=== PATIENT | female | born 1945 | race Caucasian/White ===

== ENCOUNTER 2021-12-15 08:02 | Inpatient (IN) | payer MEDICARE, OTHER ==
[2021-12-11 14:32] LABS: Urine Bacteria NONE SEEN /hpf (None Seen); Urine Blood Negative /uL (Negative); Urine Specific Gravity 1.008 (1.001-1.035); Urine WBC 1 /hpf (0 - 5)
[2021-12-11 14:34] LABS: Basophils # (auto) 0.1 10 ^3/uL (0-0.2); Basophils % (auto) 1.1 % (0.0-2.0); Eosinophils # (auto) 0.2 10 ^3/uL (0-0.8); Eosinophils % (auto) 1.8 % (0.0-7.0); Hematocrit 46.3 % (36.0-46.0); Hemoglobin 15.7 g/dL (12.2-16.2); Lymphocytes # (auto) 2.3 10 ^3/uL (0.4-5.4); Lymphocytes % (auto) 27.3 % (10.0-50.0); Mean Corpuscular Hemoglobin 31.6 pg (28.0-32.0); Mean Corpuscular Hgb Conc. 33.9 g/dL (32.0-36.0); Mean Corpuscular Volume 93.3 fL (80.0-100.0); Monocytes # (auto) 0.8 10 ^3/uL (0-1.3); Monocytes % (auto) 9.1 % (0.0-12.0); Neutrophils # (auto) 5.1 10 ^3/uL (1.6-8.6); Neutrophils % (auto) 60.7 % (37.0-80.0); Red Blood Cells 4.96 10^6/uL (4.0-5.20); Red Cell Distribution Width 13.1 % (11.8-14.3); White Blood Cell 8.5 10^3/uL (4.4-10.8)
[2021-12-11 14:45] LABS: INR 1.03 (0.9-1.15); Partial Thromboplastin Time 27.1 sec (23.6-33.0)
[2021-12-11 14:54] LABS: Calcium 8.9 mg/dL (8.5-10.1); Potassium 3.9 mmol/L (3.5-5.1)
[2021-12-11 15:09] LABS: Albumin 3.5 g/dL (3.4-5.0); BUN/Creatinine Ratio 14.1; Bilirubin, Total 0.3 mg/dL (0.2-1.0)
[~2021-12-15] VITALS: Ht 147.3 cm; Wt 78.5 kg
[2021-12-15] VITALS (7 sets, daily range): BP systolic 82–96; BP diastolic 41–52
[~2021-12-15 08:02] MED LIST: CHOL20007 OR; DICL50TA4 PO
[2021-12-15] MEDS ORDERED: ceFAZolin 1GM/50ML 100 ML IV ONE (08:32)
[2021-12-15] MEDS ORDERED: EPINEPHrine HCL 1 MG/1 ML AMP ONE (10:21)
[2021-12-15] MEDS ORDERED: TRANEXAMIC ACID 20 ML ONE (10:21)
[2021-12-15] MEDS ORDERED: VANCOMYCIN HCL 1000 MG VL ONE (10:22)
[2021-12-15] MEDS ORDERED: TETRACAINE 1% INJ 2 ML VIAL IJ ONE (10:23)
[2021-12-15] MEDS ORDERED: MIDAZOLAM HCL 2MG/2ML 2ml VIAL (1mg/ml) ONE (10:28)
[2021-12-15] MEDS ORDERED: fentaNYL CITRATE 100 MCG/2 ML VL ONE (10:28)
[2021-12-15] MEDS ORDERED: MORPHINE SULF PF 5 MG/10 ML VIAL ONE (10:28)
[2021-12-15] MEDS ORDERED: ROCURONIUM 10MG/ML 10ML VIAL IV ONE (11:01)
[2021-12-15] MEDS ORDERED: oxyCODONE HCL 5MG TAB PO PRN ×2 (11:30)
[2021-12-15] MEDS ORDERED: ONDANSETRON HCL 4 MG/2 ML VIAL ONE (12:41)
[2021-12-15] MEDS ORDERED: LIDOCAINE 2% (LOCAL ANESTH.) PF 5ml SDV ONE (12:41)
[2021-12-15] MEDS ORDERED: PROPOFOL 10 MG/ML 20 ML IV ONE ×2 (12:42→12:49)
[2021-12-15] MEDS ORDERED: ONDANSETRON HCL 4 MG/2 ML VIAL IV PRN ×2 (13:00→13:30)
[2021-12-15] MEDS ORDERED: LABETALOL HCL 5 MG/ML 4ML SYRINGE IV ONE (13:23)
[2021-12-15] MEDS ORDERED: DexAMETHasone SOD PHOS 10MG/1ML VIAL INJ IV PRN (13:30)
[2021-12-15] MEDS ORDERED: diphenhdrAMINE HCL 50 MG/1 ML VL IV PRN (13:30)
[2021-12-15] MEDS ORDERED: NALOXONE HCL 0.4 MG/ML VIAL IV PRN (13:30)
[2021-12-15] MEDS ORDERED: NALBUPHINE HCL 10 MG/1ml INJECTION SUBCUT ONE (13:30)
[2021-12-15] MEDS ORDERED: HYDROmorphone HCL 2 MG/ML VL/or syr IV PRN ×2 (13:30)
[2021-12-15] MEDS ORDERED: ceFAZolin 2 GM in D5W 5% 100 ML IV SCH (14:00)
[2021-12-15] MEDS: SODIUM CHLORIDE 0.9% 1,000 ML IV SCH ×2 (15:22→20:20)
[2021-12-15] MEDS: KETOROLAC TROMETH 30 MG/ML 1ML VIAL IV SCH ×2 (18:00→23:55)
[2021-12-15] MEDS: ACETAMINOPHEN 325 MG TAB PO SCH ×2 (18:00→23:55)
[2021-12-15] MEDS: ALBUTEROL SULF 2.5 MG/0.5ML(0.5%) NEB SOLN NEB SCH (18:00)
[2021-12-15] MEDS: DOCUSATE SOD 100 MG CAP PO SCH (20:20)
[2021-12-15] MEDS: ceFAZolin 2 GM in D5W 5% 100 ML IV SCH (20:20)
[2021-12-15] MEDS: PREGABALIN 25 MG CAP PO SCH (20:21)
[2021-12-15] MEDS ORDERED: SENNA 8.6 MG TAB PO SCH (22:00)
[2021-12-16] VITALS (11 sets, daily range): BP systolic 80–101; BP diastolic 40–66
[2021-12-16] MEDS: ceFAZolin 2 GM in D5W 5% 100 ML IV SCH (02:40)
[2021-12-16 05:35] LABS: Basophils # (auto) 0 10 ^3/uL (0-0.2); Basophils % (auto) 0.3 % (0.0-2.0); Eosinophils # (auto) 0 10 ^3/uL (0-0.8); Eosinophils % (auto) 0.4 % (0.0-7.0); Hematocrit 36.6 % (36.0-46.0); Lymphocytes # (auto) 1.5 10 ^3/uL (0.4-5.4); Mean Corpuscular Hemoglobin 31.2 pg (28.0-32.0); Mean Corpuscular Hgb Conc. 32.7 g/dL (32.0-36.0); Mean Corpuscular Volume 95.5 fL (80.0-100.0); Monocytes # (auto) 1.2 10 ^3/uL (0-1.3); Monocytes % (auto) 11.7 % (0.0-12.0); Neutrophils # (auto) 7.2 10 ^3/uL (1.6-8.6); Neutrophils % (auto) 72.6 % (37.0-80.0); Red Blood Cells 3.83 10^6/uL (4.0-5.20); Red Cell Distribution Width 13.1 % (11.8-14.3)
[2021-12-16 05:55] LABS: Potassium 3.7 mmol/L (3.5-5.1)
[2021-12-16 05:56] LABS: Calcium 7.3 mg/dL (8.5-10.1)
[2021-12-16] MEDS: KETOROLAC TROMETH 30 MG/ML 1ML VIAL IV SCH (06:05)
[2021-12-16] MEDS: ACETAMINOPHEN 325 MG TAB PO SCH (06:05)
[2021-12-16] MEDS: SODIUM CHLORIDE 0.9% 1,000 ML IV SCH (06:05)
[2021-12-16] MEDS: ALBUTEROL SULF 2.5 MG/0.5ML(0.5%) NEB SOLN NEB SCH ×2 (06:10→11:23)
[2021-12-16] MEDS: DOCUSATE SOD 100 MG CAP PO SCH (08:26)
[2021-12-16] MEDS: PREGABALIN 25 MG CAP PO SCH (08:28)
[2021-12-16] MEDS ORDERED: APIXABAN 2.5 MG TAB PO SCH (10:00)
== END 2021-12-16 16:20 | disposition home health service (06) | DRG 470 ==
LOC: SUR 08:02 → OVERFLOW 11:28 → CENTRAL 18:41 → TELE-CENTR 21:58
PROVIDERS: ADMIT Orthopaedic Surgery; ATTEND Orthopaedic Surgery
PROC: 0SR906Z Replacement of Right Hip Joint with Oxidized Zirconium on Polyethylene Synthetic Substitute, Open Approach (ICD-10-PCS; principal; 2021-12-15 10:31)
DX: M16.11 Unilateral primary osteoarthritis, right hip (principal); J44.9 Chronic obstructive pulmonary disease, unspecified; F17.210 Nicotine dependence, cigarettes, uncomplicated; Z20.822 Contact with and (suspected) exposure to COVID-19; Z90.49 Acquired absence of other specified parts of digestive tract; Z90.710 Acquired absence of both cervix and uterus
CPT/HCPCS: 36415; 72170; 73501; 80048; 80053; 81001; 85025; 85610; 85730; 86850; 86900; 86901; 94640; 97163; A4565; G0378; J0171; J0690; J1885; J2001; J2250; J2405; J2704; J3490; J7060